=== PATIENT | female | born 1945 | race Caucasian/White ===

== ENCOUNTER 2017-10-23 08:19 | Inpatient (IN) | payer MEDICARE ==
[~2017-10-23] VITALS: Ht 165.1 cm; Wt 93.5 kg
[~2017-10-23 08:19] MED LIST: ASPI81CH6 CHEW; B-12100T PO; BENA25CA4 PO; CENTCHW4 CHEW; CHOL1CAP8 PO; CO Q100C9 PO; CYCL10TA PO; GLUC15009 PO; LIPI40TA PO; LOSA25TA PO; MEDI220T PO; OMEG100046 PO; OXYBXL10 PO; PEPCCHW8 CHEW; PRIL20TA2 PO
[2017-10-23] MEDS ORDERED: CHLORHEXIDINE GLUCONATE 2 % 1 PACK (2 CLOTHS) TOPICAL PRN (09:00)
[2017-10-23] MEDS ORDERED: LACTATED RINGER'S 1000 ML IV PRN (09:00)
[2017-10-23] MEDS ORDERED: SODIUM CHLORID 0.9% 500 ML IV PRN (09:00)
[2017-10-23] MEDS ORDERED: METOPROLOL TARTRATE 25 MG TAB PO PRN (09:00)
[2017-10-23] MEDS ORDERED: HEPARIN SODIUM - SQ 10,000 UNITS/ML VIAL SQ SCH (09:00)
[2017-10-23] MEDS ORDERED: ceFAZolin 2 GM/DEX PREMIX 50 ML IV SCH (09:00)
[2017-10-23] MEDS ORDERED: POVIDONE IODINE 5% (ANTISEPSIS KIT) 4 APPLICATIONS EACH NARE PRN (09:00)
[2017-10-23] MEDS ORDERED: ACETAMINOPHEN 1000 MG/100 ML 100 ML IV ONE (11:01)
[2017-10-23] MEDS ORDERED: THROMBIN (TOPICAL) 5,000 UNIT VIAL ONE (11:06)
[2017-10-23] MEDS ORDERED: GELFOAM SIZE 100 ONE (11:06)
[2017-10-23] MEDS ORDERED: ROCURONIUM INJ 50 MG/5 ML SYRINGE IV PUSH ONE (12:00)
[2017-10-23] MEDS ORDERED: NEOSTIGMINE 5 MG/5 ML SYRINGE IV PUSH ONE (12:00)
[2017-10-23] MEDS ORDERED: DEXAMETHASONE SOD PHOS 4 MG/ML VIAL IV ONE (12:00)
[2017-10-23] MEDS ORDERED: PROPOFOL 200 MG/20 ML AMP IV ONE (12:00)
[2017-10-23] MEDS ORDERED: GLYCOPYRROLATE 1 MG/5 ML SYRINGE IV PUSH ONE (12:00)
[2017-10-23] MEDS ORDERED: PHENYLEPH/NS 1000 MCG/10 ML SYR IV ONE (12:00)
[2017-10-23] MEDS ORDERED: LACTATED RINGER'S 1000 ML INJ 1,000 ML IV ONE (12:00)
[2017-10-23] MEDS ORDERED: LIDOCAINE HCL 1% PF 5 ML SYRINGE OTHER ONE (12:00)
[2017-10-23] MEDS ORDERED: SUCCINYLCHOLINE CHLORIDE 100 MG/5 ML SYRINGE IV PUSH ONE (12:00)
[2017-10-23] MEDS ORDERED: hydrALAZINE HCL 20 MG/ML VIAL IV ONE ×2 (12:00→18:45)
[2017-10-23] MEDS ORDERED: ONDANSETRON HCL 4 MG/2 ML VIAL IV PUSH ONE (12:00)
[2017-10-23] MEDS ORDERED: SODIUM CHLORIDE 0.9% FLUSH 10 ML FLUSH IV FLUSH PRN (15:00)
[2017-10-23] MEDS ORDERED: CYCLOBENZAPRINE HCL 10 MG TAB PO PRN (15:00)
[2017-10-23] MEDS ORDERED: MORPHINE SULFATE 30 MG/30 ML PCA IV SCH (15:00)
[2017-10-23] MEDS ORDERED: NALOXONE HCL 0.4 MG/ML AMP IV PUSH PRN (15:00)
[2017-10-23] MEDS: KETOROLAC TROMETHAMINE 30 MG/ML (IVP) VIAL IVP SCH ×2 (15:00→21:28)
[2017-10-23] MEDS ORDERED: LORazepam 0.5 MG TAB PO PRN (15:00)
[2017-10-23] MEDS: PCA - TOTAL MG MORPHINE DELIVERED PER SHIFT SCH ×2 (15:00→21:32)
[2017-10-23] MEDS ORDERED: oxyCODONE/ACETAMINOPHEN 5 MG/325 MG TAB PO PRN (15:00)
[2017-10-23] MEDS ORDERED: diphenhydrAMINE HCL 25 MG CAP PO PRN (15:00)
[2017-10-23] MEDS ORDERED: DO NOT ADM ANY ANTICOAGULANT DRUGS PRN (15:20)
[2017-10-23] MEDS ORDERED: *MEPERIDINE 25 MG INJ VIAL PERIprocedural Use ONLY ONE (15:28)
[2017-10-23] MEDS ORDERED: MORPHINE SULFATE 4 MG/ML INJ ONE (15:29)
[2017-10-23] MEDS ORDERED: MIDAZOLAM HCL 2 MG/2 ML VIAL ONE (15:29)
[2017-10-23] MEDS: D5-1/2 NS + KCL 20 MEQ INJ 1,000 ML IV SCH (15:30)
[2017-10-23 16:30] VITALS: BP 180/83; PULSE 93; RESP 18; TEMP 98.7; O2SAT 94
[2017-10-23] MEDS ORDERED: METOPROLOL TARTRATE 25 MG TAB PO ONE (18:45)
[2017-10-23] MEDS: ONDANSETRON ODT 4 MG TAB SL PRN (19:26)
[2017-10-23 19:54] VITALS: BP 150/70; PULSE 99; RESP 20; TEMP 97.8; O2SAT 91
[2017-10-23] MEDS: SODIUM CHLORIDE 0.9% FLUSH 10 ML FLUSH IV FLUSH SCH (21:00)
[2017-10-23] MEDS: diphenhydrAMINE HCL 25 MG CAP PO SCH (21:31)
[2017-10-23] MEDS: ATORVASTATIN 40 MG TAB PO SCH (21:32)
[2017-10-23] MEDS: LOSARTAN 25 MG TAB PO SCH (21:32)
[2017-10-23 23:15] VITALS: BP 145/66; PULSE 94; RESP 18; TEMP 97.8; O2SAT 95
[2017-10-24] VITALS (7 sets, daily range): BP systolic 113–176; BP diastolic 58–80; PULSE 73–93; RESP 16–20; TEMP 97.8–100.1; O2SAT 92–97
[2017-10-24] MEDS: D5-1/2 NS + KCL 20 MEQ INJ 1,000 ML IV SCH ×3 (00:58→20:03)
[2017-10-24] MEDS: KETOROLAC TROMETHAMINE 30 MG/ML (IVP) VIAL IVP SCH ×4 (03:42→21:14)
[2017-10-24 06:31] LABS: AUTOMATED NEUTROPHIL # 7.5 TH/MM3 (1.8-7.7); BASOPHIL % 0.2 % (0.0-2.0); EOSINOPHIL % 0.1 % (0.0-4.0); HEMATOCRIT 39.3 % (35.0-46.0); HEMOGLOBIN 13.3 GM/DL (11.6-15.3); LYMPH % 13.6 % (9.0-44.0); LYMPHOCYTE # 1.3 TH/MM3 (1.0-4.8); MEAN CELL VOLUME 86.5 FL (80.0-100.0); MEAN CORPUSCULAR HEMOGLOBIN 29.3 PG (27.0-34.0); MEAN CORPUSCULAR HGB CONC 33.9 % (32.0-36.0); MEAN PLATELET VOLUME 6.7 FL (7.0-11.0); MONO % 9.1 % (0.0-8.0); MONOCYTE # 0.9 TH/MM3 (0-0.9); PLATELET COUNT 266 TH/MM3 (150-450); RED BLOOD COUNT 4.54 MIL/MM3 (4.00-5.30); RED CELL DISTRIBUTION WIDTH 14.6 % (11.6-17.2); WHITE BLOOD COUNT 9.7 TH/MM3 (4.0-11.0)
[2017-10-24] MEDS: PCA - TOTAL MG MORPHINE DELIVERED PER SHIFT SCH ×3 (06:32→21:14)
--- NOTE | 2017-10-24 07:00 | HHI.PR ---
Subjective . c/o discomfort, being tired c/w surgery Objective . afeb, vss i/o 1390/1800 h/h / lytes P nad, alert cta with mild basilar rales, , rrr abd soft, clean dry cam specialist no bleeding ext nt Assessment/Plan . 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
[2017-10-24 07:07] LABS: BICARBONATE 26.4 MEQ/L (21.0-32.0); CALCIUM 8.4 MG/DL (8.5-10.1); CREATININE 0.86 MG/DL (0.50-1.00)
--- NOTE | 2017-10-24 08:32 | MP ---
cc: Isaura Pyle MD, Roxy MD DATE OF OPERATION: 10/23/2017 DATE OF PROCEDURE: 10/23/2017 PREOPERATIVE DIAGNOSIS: Large abdominopelvic mass. POSTOPERATIVE DIAGNOSES: 1. Large left ovarian cystadenofibroma. 2. Right cystadenofibroma. 3. Uterine leiomyomas. PROCEDURE PERFORMED: Exploratory laparotomy, total abdominal hysterectomy, bilateral salpingo-oophorectomy (with resection of a 28-30 cm left ovarian mass, and resection of an 8 cm right ovarian mass). SURGEON; Isaura Pyle MD ROOM WORKER: James first front ventilator. ANESTHESIA: General endotracheal anesthesia. ESTIMATED BLOOD LOSS: 200 mL. IV FLUIDS: 1000 mL. URINE OUTPUT: 200 mL. DESCRIPTION OF PROCEDURE: A 72-year-old female complaining of increasing abdominal distention, pressure, reflux, heartburn symptomatology, found on exam and imaging to have a very large abdominopelvic mass thought to be of probable ovarian origin. The mass was very complex in nature, solid and cystic components, multiple internal loculations and the possibility of bilateral masses based on the overall CAT scan findings and CA-125 modestly elevated at 104. She was counseled regarding recommendations for surgery and favoring the laparotomy to address these issues. She was seen again in the preop holding area accompanied by friends and family. Findings were again reviewed. Plan of care discussed. Questions were asked and answered. She expressed good understanding and would like to move forward with surgery. FINDINGS: Upon entry into the peritoneal cavity, a very large smooth-walled, but lobulated complex mass was noted, extending essentially to the level of the rib cage and sternum, extending from abdominopelvic sidewall to sidewall and due to its very large size, the origin of the mass could not be immediately determined, as it obscured any visible or palpable injury to assess other organs. A small amount of fluid was in the pelvis and was obtained and sent for cytology. Palpation around the mass revealed minimal adhesions, which were taken down bluntly. There was no obvious defect in the capsule of the mass. There is no peritoneal nodularity, and no omental thickening that could be determined. The liver edges were smooth. Overall, the mass had favored a benign appearance. Estimated size for the left ovarian mass 28-30 cm. Right ovarian mass, which was in the posterior cul-de-sac, was approximately 7-8 cm in greatest dimension and also had solid and cystic multilobular components. Frozen section analysis of both ovarian masses were suggestive of benign cystadenofibromas. No borderline elements. No malignancy detected. Frozen section of the uterus showed leiomyomas with no other apparent abnormality. STATEMENT OF COMPLEXITY/MODIFIER: The complexity of this case was significantly increased due to the extremely large nature of the pelvic mass, requiring additional time and attention for surgical dissection and modifier should be applied accordingly. DESCRIPTION OF PROCEDURE: She was taken to the operating room and placed in dorsal lithotomy position. After general endotracheal anesthesia was administered, a timeout was undertaken. She was identified by site recognition and hospital ID [email or web address], and the proposed procedure was reviewed and confirmed. She was prepped and draped in sterile fashion. Russo catheter placed in the bladder. Her arms were secured out to the sides. All sites had been inspected, properly aligned, no pressure points or malalignment. An orogastric tube was in the stomach on suction. Midline vertical incision was made below the umbilicus, carried down to the level of the fascia. The fascia was entered. The peritoneal cavity was entered. Small amount of pelvic fluid was obtained for cytology. Manual inspection was carried out with findings as described above. Initial access to the pelvis was blocked due to the massive size of this growth, but the upper abdomen could be palpably explored with no overt evidence of metastatic disease. Lap pads were placed on the surface of this mass over the cystic component and a needle aspirator was placed, from which 4800 mL of clear fluid were removed and the cyst wall was doubly clamped below the needle site, the needle was removed and there was no spill of fluid whatsoever. Now, the mass had been reduced in size to where with a stretch on the abdominal wall, elevation and repositioning of the mass, it was able to be delivered through the midline vertical incision which allowed better inspection to the pelvic anatomy confirming that this mass was arising from and replacing the left ovary. The left round ligament was doubly suture ligated and transected. The anterior and posterior leaves of the broad ligament were opened. The left ureter was identified. The left infundibulopelvic ligament was isolated and the intervening peritoneum was opened. Some pericolonic adhesions were taken down to isolate the gonadal vessels and the gonadal vessels were elevated as the ureter was retracted posteriorly. The gonadal vessels were doubly clamped, cut and doubly suture ligated. Additional adhesions were taken down with sharp dissection until the left uteroovarian ligament was isolated, which was then doubly clamped, cut, and thereby removing the large left ovarian mass, which was sent for frozen section analysis. Lap pads and a Bookwalter retractor were used now to assist in surgical exposure. The right round ligament was doubly suture ligated and transected. The anterior and posterior leafs of the broad ligament were opened. The right ureter was identified. The right infundibulopelvic ligament was isolated. The intervening peritoneum was opened. The infundibulopelvic ligament was dissected to the level of the pelvic brim where it was doubly clamped, cut and doubly suture ligated. The mass on the right ovary was elevated from the posterior cul-de-sac, and additional dissection was carried out to free the right uteroovarian ligament which was then clamped and cut, thereby removing the right tube and ovary, sent for frozen section analysis. The uterus was enlarged and had moderately sized leiomyomas at the fundus. The uterine vessels were skeletonized bilaterally. The vesicouterine peritoneum was dissected off the lower uterine segment and cervix and the posterior peritoneum was opened down below the level of the cervix. The uterine vessels were doubly clamped bilaterally, cut, and suture ligated. Dissection was carried out along the right side, where the cardinal, paracervical and uterosacral ligaments were clamped, cut, and suture ligated immediately adjacent to the cervix in a stepwise fashion and then attention was directed toward the left side were similarly the cardinal, paracervical and uterosacral ligaments were isolated, clamped, cut, and suture ligated. When the dissection was below the level of the cervix, curved Chris clamps were placed below the cervix at the lateral vaginal angles and the specimen was removed with sharp dissection, cutting below the cervix, across the vaginal apex, removing the uterus and cervix. The specimen was inspected and confirmed that the entire cervix was removed. The vaginal cuff was supported at the lateral angles with interrupted [id number] sutures including the posterior peritoneum and edge of the uterosacral ligaments, and the cuff was closed, rendered hemostatic and supported with interrupted [id number] 0 Vicryl sutures. The pelvis was thoroughly irrigated. Small bleeders rendered hemostatic with bipolar cautery. The bladder was inspected and noted to be intact. There was a good margin between the bladder edge and the vaginal cuff. Good peristalsis of ureters bilaterally, adequate hemostasis. Now with better exposure, followup evaluation of the anatomy revealed no retroperitoneal adenopathy, no peritoneal implants, no omental thickening, essentially no other peritoneal abnormality. Frozen section came back showing benign cystadenofibromas bilaterally, and accordingly, it was felt that all reasonable surgical objectives had been completed. Hemostatic Surgicel powder was placed across the vaginal cuff and lateral pelvic sidewalls to assist in continued hemostasis. The lap pads and Bookwalter retractor were removed. Visual and manual inspection confirmed there were no remaining foreign objects in the peritoneal cavity, preliminary counts were correct, and attention was directed toward closing. The abdominal wall was closed with 0 looped PDS in a modified continuous Smead-Mcdaniel fashion, starting at the apices and meeting in the midpoint where the sutures were tied securely. Subcutaneous tissue was irrigated. Supriya's fascia was reapproximated with interrupted 2-0 Vicryl sutures until the skin edge was in close proximity without tension, which was then closed with a running 3-0 Vicryl subcuticular. Steri-Strips and dry sterile dressing were placed over the incision. Final counts were correct. There were no remaining foreign objects in the vagina. The vaginal cuff was hemostatic. She was returned to dorsal supine position and was pending reversal of anesthesia, when I left the operating room to precede her to the postanesthesia care unit. MD MARTY Mcdaniels/HERNANDO , 07:15 AM , 08:32 AM
[2017-10-24] MEDS: TOLTERODINE TARTRATE 4 MG CAP LA PO SCH (09:05)
[2017-10-24] MEDS: PANTOPRAZOLE SOD 20 MG DELAYED RELEASE TAB PO SCH (09:05)
[2017-10-24] MEDS: FAMOTIDINE 20 MG TAB PO SCH (09:05)
[2017-10-24] MEDS: SODIUM CHLORIDE 0.9% FLUSH 10 ML FLUSH IV FLUSH SCH ×2 (09:15→20:03)
[2017-10-24] MEDS: ONDANSETRON ODT 4 MG TAB SL PRN (10:11)
[2017-10-24] MEDS: diphenhydrAMINE HCL 25 MG CAP PO SCH (20:02)
[2017-10-24] MEDS: ATORVASTATIN 40 MG TAB PO SCH (20:02)
[2017-10-24] MEDS: LOSARTAN 25 MG TAB PO SCH (20:02)
[2017-10-25] VITALS (7 sets, daily range): BP systolic 111–185; BP diastolic 58–98; PULSE 72–93; RESP 16–18; TEMP 98–99.4; O2SAT 91–98
[2017-10-25] MEDS: KETOROLAC TROMETHAMINE 30 MG/ML (IVP) VIAL IVP SCH ×4 (03:45→20:34)
[2017-10-25] MEDS: oxyCODONE/ACETAMINOPHEN 5 MG/325 MG TAB PO PRN (03:56)
[2017-10-25] MEDS: D5-1/2 NS + KCL 20 MEQ INJ 1,000 ML IV SCH (06:26)
[2017-10-25] MEDS: PCA - TOTAL MG MORPHINE DELIVERED PER SHIFT SCH (06:27)
--- NOTE | 2017-10-25 07:36 | PD.ONC.PN ---
Subjective Subjective Remarks POD #2 pt is resting in bed, has not been OOB Russo was removed this morning IS at bedside and pt using denies any n/v and pain controlled stopped using TEST AND TURN UP TECHNICIAN last night. Objective Data Date Time Temp Pulse Resp B/P (MAP) Pulse Ox O2 Delivery O2 Flow Rate FiO2 10/25/17 06:36 72 111/58 (75) 10/25/17 06:27 16 10/25/17 04:45 16 10/25/17 04:45 16 10/25/17 03:48 98.8 87 18 185/98 (127) 96 10/24/17 23:16 98.2 73 16 172/80 (110) 97 10/24/17 21:55 Nasal Cannula 2.00 10/24/17 21:18 98.7 10/24/17 21:14 16 10/24/17 19:55 Nasal Cannula 2.00 10/24/17 19:55 100.1 93 20 176/78 (110) 93 10/24/17 16:00 99.2 93 18 157/74 (101) 96 10/24/17 14:00 18 10/24/17 12:00 97.8 83 18 138/65 (89) 95 10/24/17 08:29 97.8 83 18 113/58 (76) 95 10/24/17 08:29 92 Nasal Cannula 2.00 10/25/17 10/25/17 10/25/17 07:00 15:00 23:00 Intake Total 150 ml Output Total 3300 ml Balance -3150 ml Result Diagram: 10/24/1715 10/24/17 0615 Administered Medications Medications (Trade) Dose Ordered Sig/Lloyd Route PRN Reason Start Time Stop Time Status Last Admin Dose Admin Lactated Ringer's 1,000 ml @ 30 mls/hr Q24H PRN IV SEE LABEL COMMENTS 10/23/17 09:00 10/26/17 08:59 10/23/17 08:45 Povidone Iodine (Betadine 5% Antisepsis Kit) 1 applic EXECUTIVE OFFICE MANAGER PRN EACH NARE SEE LABEL COMMENTS 10/23/17 09:00 10/26/17 08:59 10/23/17 09:00 Chlorhexidine Gluconate (Chlorhexidine 2% Cloth) 3 pack EXECUTIVE OFFICE MANAGER PRN TOPICAL SEE LABEL COMMENTS 10/23/17 09:00 10/26/17 08:59 10/23/17 08:40 Atorvastatin Calcium (Lipitor) 40 mg HS PO 10/23/17 21:00 10/24/17 20:02 Diphenhydramine HCl (Benadryl) 25 mg HS PO 10/23/17 21:00 10/24/17 20:02 Losartan Potassium (Cozaar) 25 mg HS PO 10/23/17 21:00 10/24/17 20:02 Famotidine (Pepcid) 20 mg DAILY PO 10/24/17 09:00 10/24/17 09:05 Pantoprazole Sodium (Protonix) 20 mg DAILY PO 10/24/17 09:00 10/24/17 09:05 Tolterodine Tartrate (Detrol La) 4 mg DAILY PO 10/24/17 09:00 10/24/17 09:05 Potassium Chloride/Dextrose/ Sod Cl 1,000 ml @ 100 mls/hr Q10H IV 10/23/17 14:56 10/25/17 06:26 Sodium Chloride (NS Flush) 2 ml BID IV FLUSH 10/23/17 21:00 10/24/17 09:15 Ketorolac Tromethamine (Toradol Inj) 15 mg Q6H IVP 10/23/17 15:00 10/26/17 09:01 10/25/17 03:45 Oxycodone/ Acetaminophen (Percocet 5-325 Mg) 1 tab Q4H PRN PO PAIN SCALE 1 TO 5 10/23/17 15:00 10/25/17 03:56 Ondansetron HCl (Zofran Odt) 4 mg Q6H PRN SL NAUSEA OR VOMITING 10/23/17 15:00 10/24/17 10:11 Lorazepam (Ativan) 0.5 mg Q8H PRN PO ANXIETY 10/23/17 15:00 10/25/17 00:16 Morphine Sulfate (Morphine 1 Mg/ ml TEST AND TURN UP TECHNICIAN) 30 mg UNSCH IV 10/23/17 15:00 10/23/17 16:25 TEST AND TURN UP TECHNICIAN Dosage Infused (Pha) 1 Q8HR .XX 10/23/17 15:00 10/25/17 06:27 Objective Remarks GENERAL: Well-nourished, well-developed patient. SKIN: Warm and dry. HEAD: Normocephalic. EYES: No scleral icterus. No injection or drainage. CARDIOVASCULAR: Regular rate and rhythm without murmurs. RESPIRATORY: Breath sounds equal bilaterally. No accessory muscle use. GASTROINTESTINAL: Abdomen soft, non-tender, nondistended. abdominal binder, dressing C/D/I EXTREMITIES: teds and scds MUSCULOSKELETAL: Adequate muscle tone. NEUROLOGICAL: No obvious focal deficit. Awake, alert, and oriented x3. PSYCHIATRIC: Appropriate mood and affect; insight and judgment normal. Assessment/Plan Problem List: (1) Post-operative state ICD Codes: Z98.890 - Other specified postprocedural states Status: Acute Plan: POD #2 regular diet OOB to chair and ambulate today D/C TEST AND TURN UP TECHNICIAN decrease IVF decrease anticipate D/C home in next 24 hours Haroldo Encinas Oct 25, 2017 07:36
[2017-10-25] MEDS: TOLTERODINE TARTRATE 4 MG CAP LA PO SCH (08:42)
[2017-10-25] MEDS: PANTOPRAZOLE SOD 20 MG DELAYED RELEASE TAB PO SCH (08:42)
[2017-10-25] MEDS: FAMOTIDINE 20 MG TAB PO SCH (08:42)
[2017-10-25] MEDS: SODIUM CHLORIDE 0.9% FLUSH 10 ML FLUSH IV FLUSH SCH ×2 (08:43→20:35)
[2017-10-25] MEDS ORDERED: SIMETHICONE 125 MG CHEWABLE TAB PO PRN (14:15)
[2017-10-25] MEDS: LOSARTAN 25 MG TAB PO SCH (20:33)
[2017-10-25] MEDS: ATORVASTATIN 40 MG TAB PO SCH (20:34)
[2017-10-25] MEDS: diphenhydrAMINE HCL 25 MG CAP PO SCH (20:35)
[2017-10-26 00:47] VITALS: BP 141/77; PULSE 91; RESP 18; TEMP 98.8; O2SAT 93
[2017-10-26] MEDS: oxyCODONE/ACETAMINOPHEN 5 MG/325 MG TAB PO PRN ×2 (00:55→09:44)
[2017-10-26] MEDS: KETOROLAC TROMETHAMINE 30 MG/ML (IVP) VIAL IVP SCH ×2 (05:26→09:00)
[2017-10-26 05:29] VITALS: BP 147/83; PULSE 77; RESP 18; TEMP 98.9; O2SAT 94
[2017-10-26] MEDS ORDERED: OXYC1TAB63 PO (06:28)
--- NOTE | 2017-10-26 07:00 | MD ---
cc: Isaura Pyle MD, Roxy MD DATE OF DISCHARGE: PROCEDURE PERFORMED: On 10/23/2017, exploratory laparotomy, total abdominal hysterectomy, bilateral salpingo-oophorectomy (with resection of large bilateral ovarian masses). HOSPITAL COURSE: She did well in the hospital. She was progressing nicely. By postoperative day #3, she was tolerating oral intake, she was voiding without difficulty, ambulating, no nausea or vomiting. PHYSICAL EXAMINATION: VITAL SIGNS: Afebrile, pulse 77-93, respirations 16-18, blood pressure 141-178/68-95, and O2 saturations greater than or equal to 93% while awake, 91% while asleep. LUNGS: Clear. She has got some mild basilar rales. CARDIOVASCULAR: Regular rate and rhythm. ABDOMEN: Soft. Midline incision clean and dry. Steri-Strips intact. GYNECOLOGIC: No bleeding. EXTREMITIES: Nontender. ASSESSMENT: Postoperative day #3 overall doing well. Final pathology discussed, consistent with bilateral benign cystadenofibromas arising from the ovaries. Activities and restrictions reviewed. Questions were asked and answered. She expressed good understanding. PLAN: Anticipate she will meet criteria for discharge to home today. She is to contact our office to schedule followup in approximately 2 weeks. She is to resume prior medications. She will have a prescription for Percocet for pain and our office number is again made available should she have any questions or problems between now and the time of scheduled followup. MD MARTY Mcdaniels/HERNANDO , 06:33 AM , 06:59 AM
[2017-10-26 08:08] VITALS: BP 138/70; PULSE 80; RESP 18; TEMP 97.5; O2SAT 93
[2017-10-26] MEDS: SODIUM CHLORIDE 0.9% FLUSH 10 ML FLUSH IV FLUSH SCH (09:00)
[2017-10-26] MEDS: PANTOPRAZOLE SOD 20 MG DELAYED RELEASE TAB PO SCH (09:44)
[2017-10-26] MEDS: TOLTERODINE TARTRATE 4 MG CAP LA PO SCH (09:45)
[2017-10-26] MEDS: FAMOTIDINE 20 MG TAB PO SCH (09:45)
== END 2017-10-26 09:58 | disposition home or self-care (01) | DRG 743 ==
LOC: HSDI 08:19 → HCIN 16:30
PROVIDERS: ADMIT Obstetrics & Gynecology Gynecologic Oncology; ATTEND Obstetrics & Gynecology Gynecologic Oncology
PROC: 0UT70ZZ Resection of Bilateral Fallopian Tubes, Open Approach (ICD-10-PCS; 2017-10-23)
PROC: 0UT90ZZ Resection of Uterus, Open Approach (ICD-10-PCS; 2017-10-23)
PROC: 0UTC0ZZ Resection of Cervix, Open Approach (ICD-10-PCS; 2017-10-23)
PROC: 0UT20ZZ Resection of Bilateral Ovaries, Open Approach (ICD-10-PCS; principal; 2017-10-23 11:29)
DX: D27.1 Benign neoplasm of left ovary (principal); I10 Essential (primary) hypertension; D25.2 Subserosal leiomyoma of uterus; D27.0 Benign neoplasm of right ovary; K21.9 Gastro-esophageal reflux disease without esophagitis; E78.5 Hyperlipidemia, unspecified; M19.90 Unspecified osteoarthritis, unspecified site; Z79.82 Long term (current) use of aspirin
CPT/HCPCS: 36415; 80048; 85025; 86850; 86900; 86901; 86920; 88112; 88305; 88307; 88329; 88331; 94150; J0131; J0330; J0360; J0690; J1100; J1644; J1885; J2175; J2250; J2270; J2370; J2405; J2710; J3010; J3480; J7120